=== PATIENT | female | born 1965 | race Caucasian/White ===

== ENCOUNTER 2017-04-09 07:09 | Emergency (ER) ==
--- NOTE | 2017-04-09 07:18 | ED.PDOC ---
General ED Provider: Dr. CARTER BOWMAN JR Chief Complaint: Sore Throat Stated Complaint: SORE THROAT GETTING WORSE IN THE PAST WEEK. [ End ]96.6 72 20 98% 125/85 10 Time Seen by Physician: 07:17 Mode of Arrival: Walk-In Information Source: Patient Exam Limitations: No limitations Nursing and Triage Documentation Reviewed and Agree: No Review of Systems - Review Of Systems Constitutional: Reports: Malaise Eyes: Reports: No symptoms Ears, Nose, Mouth, Throat: Reports: Throat pain Respiratory: Reports: No symptoms Cardiac: Reports: No symptoms GI: Reports: No symptoms : Reports: No symptoms Musculoskeletal: Reports: Joint pain, Muscle pain Skin: Reports: Lesions Neurological: Reports: No symptoms Endocrine: Reports: No symptoms Hematologic/Lymphatic: Reports: No symptoms, Swollen glands All Other Systems: Other Past Medical History - Past Medical History Previously Healthy: Yes Endocrine: Reports: None Cardiovascular: Reports: None Respiratory: Reports: Asthma Hematological: Reports: None Gastrointestinal: Reports: None Genitourinary: Reports: None Neuro/Psych: Reports: None Musculoskeletal: Reports: None Cancer: Reports: None Last Menstrual Period: 2009 Other Pertinent Past Medical History: recent travel [place] of the [place]- [place] - Surgical History General Surgical History: Reports: , Tonsillectomy - Family History Family History: Reports: Other (was on cruise with sons, many insect bites no known tickbites but frequent ticks from dogs at home children not known to be ill) - Social History Smoking Status: Current some day smoker Hx Substance Use: No Alcohol Screening: None Pt Occupation: [employer], RN at [employer] - Immunizations Tetanus Shot up to Date: Yes Physical Exam - Physical Exam Appearance: Well-appearing, Thin Pain Distress: Moderate Eyes: BUTCH, EOMI, Conjunctiva clear ENT: Ears normal, Nose normal, Erythema Neck: Supple (ant tender small nodes) Respiratory: Airway patent, Breath sounds clear, Breath sounds equal, Respirations nonlabored Cardiovascular: RRR, Pulses normal, No rub, No murmur GI/: Soft, Nontender, No masses, Bowel sounds normal, No Organomegaly Musculoskeletal: Normal strength, ROM intact, No edema, No calf tenderness Skin: Warm, Dry, Normal color Neurological: Sensation intact, Motor intact, Reflexes intact, Cranial nerves intact, Alert, Oriented Psychiatric: Affect appropriate, Mood appropriate Critical Care Note - Critical Care Note Total Time (mins): 0 Course - Course Hematology/Chemistry: 04/09/17 07:40 Orders, Labs, Meds: Orders Category Date Time Status STREP SCREEN Stat LAB 04/09/17 07:13 Uncollected Vital Signs: Temp Pulse Resp BP Pulse Ox 04/09/17 07:10 96.6 F L 72 20 125/85 98 Departure - Departure Time of Disposition: 17:50 Disposition: HOME SELF-CARE Discharge Problem: Sore throat symptom, Ringworm, body Instructions: Pharyngitis (ED), Tinea Corporis (ED) Condition: Good Pt referred to PMD for follow-up: Yes (may follow with [employer]) Additional Instructions: NSAIDS for discomfort Doxycycline antibiotic salt water gargles Chloraseptic for sore throat wait until symptoms totally resolved then may try Lamisil topical for skin rash Prescriptions: Doxycycline Monohydrate [Monodox] 100 mg PO BID #20 capsule Allergies/Adverse Reactions: Allergies Penicillins Adverse Reaction (Verified 04/09/17 07:15) Home Medications: Ambulatory Orders Doxycycline Monohydrate [Monodox] 100 mg PO BID #20 capsule 04/09/17
[2017-04-09 07:52] LABS: BASOPHILS # (AUTO) 0.1 K/uL (0-0.2); BASOPHILS % (AUTO) 0.9 % (0.0-3.0); EOSINOPHILS # (AUTO) 0.2 K/ul (0.0-0.7); EOSINOPHILS % (AUTO) 3.2 % (0.0-7.0); HEMATOCRIT 41.9 % (37.0-47.0); HEMOGLOBIN 14.2 g/dl (12.0-16.0); IMMATURE GRANULOCYTE % (AUTO) 0.2 % (0.0-5.0); LYMPHOCYTES # (AUTO) 3.1 K/uL (0.60-3.4); MEAN CORPUSCULAR HEMOGLOBIN 29.6 pg (27.0-31.0); MEAN CORPUSCULAR HGB CONC 33.9 (31.8-35.4); MEAN CORPUSCULAR VOLUME 87.5 fl (81.0-99.0); MONOCYTES # (AUTO) 0.4 K/uL (0.4-2.0); MONOCYTES % (AUTO) 6.3 (0-10); NEUTROPHILS # (AUTO) 2.9 K/ul (2.0-6.9); NEUTROPHILS % (AUTO) 43.4; PLATELET COUNT 248 10^3/uL (140-440); RED BLOOD COUNT 4.79 10^6/ul (4.20-5.40); WHITE BLOOD COUNT 6.63 K/ul (4.6-10.2)
[2017-04-09 08:08] VITALS: BP 125/85; TEMP 96.6; BMI 25.8
[2017-04-12 10:38] LABS: IGG P18 AB Absent (.); IGG P23 AB Absent (.); IGG P28 AB Absent (.); IGG P30 AB Absent (.); IGG P39 AB Absent (.); IGG P41 AB Absent (.); IGG P45 AB Absent (.); IGG P58 AB Absent (.); IGG P66 AB Absent (.); IGG P93 AB Absent (.); IGM P39 AB Absent (.); IGM P41 AB Absent (.)
[2017-04-13 10:22] LABS: LYME IGG WB INTERP Negative (.); LYME IGM WB INTERP Negative (.)
== END 2017-04-09 07:56 | disposition home or self-care (01) ==
LOC: ED 07:09
DX: J02.9 Acute pharyngitis, unspecified (principal); B35.4 Tinea corporis; F17.210 Nicotine dependence, cigarettes, uncomplicated
CPT/HCPCS: 36415; 85025; 86617; 87651; 87798; 87880; 99283